=== PATIENT | male | born 1960 | race Two or more races ===

== ENCOUNTER 2017-06-25 11:17 | Inpatient (IN) | payer BC ==
[~2017-06-25] VITALS: Ht 182.9 cm; Wt 106.9 kg
--- NOTE | 2017-06-25 13:27 | HP ---
Date/Time of Note Date/Time of Note DATE: 06/25/17 TIME: 13:23 Assessment/Plan VTE Prophylaxis VTE Prophylaxis Intervention: ambulation Assessment/Plan Chief Complaint/Hosp Course 1. Dysphagia and vomiting 2. Nausea 3. Acid reflex 4. Overweight 5.Nicotine dependence 6. Anxiety 7. Methadone use 8. Possible DN type II Problems: Assessment/Plan 1. Start protonix and IV fluids 2. NO vital signs yet 3. Dr Conley for a consult HPI/ROS Admit Date/Time Admit Date/Time Jun 25, 2017 at 13:04 Hx of Present Illness 56 yo patient check in in [facility] Emergency room with acid reflex and vomiting previous night. He said that he has dysphagia over a year and now unable to eat or swallow a water. He does not associate vomiting with any bad food, reported frequent acid reflex. Reports sore thrOAT Now patient reports nausea and decreased appetite. denied cough, chills, loss of weight and similar symptoms PRIOR 1 YEAR AGO. HISTORY OF OPIATES USE, NOW ON METHADONE 38 mg daily AND XANAX 2 mg PO TID. ROS Respiratory: no complaints Cardiovascular: no complaints Gastrointestinal: decreased appetite, nausea, pain, vomiting (last night) Genitourinary: no complaints Musculoskeletal: no complaints Lymphatic: no complaints Psychological: no complaints PMH/Family/Social Past Medical History Medical History: hypertension, other (acid reflex) Past Surgical History Past Surgical Hx: no surgical history Family History Significant Family History: other (live with [facility]) Social History Alcohol Use: none Smoking Status: Current every day smoker Drug Use: other (history opiates abuse) Exam/Review of Systems Exam Constitutional: alert, oriented Eyes: nl conjunctiva ENMT: nl external ears & nose Neck: supple Respiratory: clear to auscultation Cardiovascular: regular rate and rhythm Gastrointestinal: soft Musculoskeletal: nl extremities to inspection Extremities: normal pulses Neurological: INTEGRATION LEAD II-XII intact RASHAD PACKER Jun 25, 2017 13:27
[2017-06-25 13:45] VITALS: BP 153/80; PULSE 89; RESP 16
[2017-06-25] MEDS ORDERED: ZOLPIDEM 5 MG TAB PO PRN (14:00)
[2017-06-25] MEDS ORDERED: ONDANSETRON 4 MG INJ IV PRN (14:00)
[2017-06-25] MEDS ORDERED: DEXTROSE 5% 1,000 ML IV SCH (14:00)
[2017-06-25] MEDS: DEXTROSE 5%-0.9% NACL 1,000 ML IV SCH ×2 (14:00→23:39)
[2017-06-25] MEDS ORDERED: NACL 0.9% 3 ML SYG IV SCH (14:00)
[2017-06-25] MEDS ORDERED: METHADONE (1 MG/ML 5 ML PO UD SYG) PO SCH (14:00)
[2017-06-25] MEDS ORDERED: IBUPROFEN 600 MG TAB PO PRN (14:00)
[2017-06-25] MEDS ORDERED: hydrALAzine 20 MG INJ IV PRN (14:00)
[2017-06-25 14:42] VITALS: Ht 182.9 cm; Wt 106.9 kg
[2017-06-25] MEDS ORDERED: METHADONE (1 MG/ML 5 ML PO UD SYG) PO ONE (15:00)
[2017-06-25] MEDS: ALPRAZOLAM 1 MG TAB PO SCH ×2 (15:00→17:37)
[2017-06-25] MEDS ORDERED: PANTOPRAZOLE 40 MG INJ IV SCH (17:00)
[2017-06-25] MEDS: PANTOPRAZOLE 40 MG INJ IV SCH (17:10)
[2017-06-25] MEDS: METOCLOPRAMIDE 10 MG INJ IV SCH ×2 (17:37→23:39)
[2017-06-25] MEDS ORDERED: METH-378 PO (18:26)
[2017-06-25] MEDS ORDERED: ALPR2TAB PO (18:26)
[2017-06-25 18:39] LABS: BARBITURATES Negative (NEGATIVE); BENZODIAZEPINES Positive (NEGATIVE); CANNABINOIDS Negative (NEGATIVE); COCAINE Negative (NEGATIVE); OPIATES Negative (NEGATIVE)
[2017-06-25 21:01] VITALS: BP 162/89; RESP 19
[2017-06-25 21:17] VITALS: BP 156/75
--- NOTE | 2017-06-26 02:25 | CONS ---
DATE OF ADMISSION: 06/25/2017 DATE OF CONSULTATION: HISTORY OF PRESENT ILLNESS: A 56-year-old male admitted to the hospital for severe heartburn, occas ional dysphagia and regurgitation going on for the last 1 year with acute exacerbation recently. Th e patient was in the emergency room at [facility]. No GI bleeding, no chest pain, no shortn ess of breath, no or CAMPUS DIRECTOR problem. Patient is on methadone and Xanax. REVIEW OF SYSTEMS: Negative. There is no weight loss, no cough. PAST MEDICAL HISTORY: Hypertension. PAST SURGICAL HISTORY: None. SOCIAL HISTORY: Lives with his sister. No alcohol, everyday smoker. PHYSICAL EXAMINATION GENERAL: Well built, nourished, not in distress. VITAL SIGNS: Stable. HEENT: Unremarkable. NECK: Supple, no thyromegaly, no lymphadenopathy. CARDIOVASCULAR: No murmur, gallop or click. LUNGS: Clear. ABDOMEN: Benign. EXTREMITIES: No edema. CENTRAL NERVOUS SYSTEM: Grossly within normal limits. IMPRESSION: 1. Severe gastroesophageal reflux disease. 2. Regurgitation. 3. Dysphagia. 4. Nicotine dependency. 5. Anxiety. 6. Type 2 diabetes mellitus. 7. Methadone usage for her back pain. PLAN: At this point is to continue with Protonix and increase the dose, Reglan around the clock, an d the patient definitely will need EGD. Dictated By: ANA LEON/GARETT Conf#: [id number] DID#: [id number] CC: FAISAL TERRELL MD;*EndCC*
[2017-06-26 02:30] VITALS: BP 138/78; RESP 19
[2017-06-26] MEDS: PANTOPRAZOLE 40 MG INJ IV SCH ×2 (05:25→17:34)
[2017-06-26] MEDS: METOCLOPRAMIDE 10 MG INJ IV SCH ×4 (05:26→23:35)
[2017-06-26 07:24] LABS: BASOPHILS % 0.2 % (0.0-2.0); EOSINOPHILS % 0.1 % (0.0-7.0); HEMATOCRIT 37.4 % (42.0-52.0); HEMOGLOBIN 12.7 g/dl (14.0-18.0); LYMPHOCYTES % 20.6 % (15.0-51.0); MEAN CORPUSCULAR HEMOGLOBIN 30.8 pg (29.0-33.0); MEAN CORPUSCULAR VOLUME 90.6 fl (82.0-101.0); MEAN PLATELET VOLUME 9.6 fl (7.4-10.4); MONOCYTE # 0.7 10^3/ul (0.3-0.9); MONOCYTES % 7.2 % (0.0-11.0); NEUTROPHIL # 6.9 10^3/ul (1.6-7.5); NEUTROPHILS % 71.6 % (39.0-77.0); PLATELET COUNT 215 10^3/UL (140-415); RED BLOOD COUNT 4.13 10^6/ul (4.70-6.10); RED CELL DISTRIBUTION WIDTH 13.9 % (11.5-14.5); WHITE BLOOD COUNT 9.6 10^3/ul (4.8-10.8)
[2017-06-26 07:55] LABS: ALBUMIN 3.7 g/dl (3.3-4.9); ALBUMIN/GLOBULIN RATIO 1.15; BILIRUBIN,INDIRECT 0.2 mg/dl (0-1.1); BILIRUBIN,TOTAL 0.2 mg/dl (0.2-1.3); CREATININE 0.63 mg/dl (0.61-1.24); POTASSIUM 3.5 mmol/L (3.5-5.1); TOTAL PROTEIN 6.9 g/dl (6.1-8.1)
[2017-06-26 08:42] VITALS: BP 159/89; RESP 17
[2017-06-26] MEDS: ALPRAZOLAM 1 MG TAB PO SCH ×3 (08:56→20:29)
[2017-06-26] MEDS: METHADONE (1 MG/ML 5 ML PO UD SYG) PO SCH (12:01)
[2017-06-26] MEDS: DEXTROSE 5%-0.9% NACL 1,000 ML IV SCH ×3 (12:04→22:18)
--- NOTE | 2017-06-26 13:28 | PN ---
Date/Time of Note Date/Time of Note DATE: 06/26/17 TIME: 13:26 Assessment/Plan VTE Prophylaxis VTE Prophylaxis Intervention: ambulation Lines/Catheters IV Catheter Type (from Nrsg): Peripheral IV Assessment/Plan Chief Complaint/Hosp Course 1. Dysphagia and vomiting found severe gastroesophageal reflux disease. 2. Nausea 3. Acid reflex 4. Overweight 5. Nicotine dependence 6. Anxiety 7. Methadone use 39 mg daily 8. Hg A1 C 5.5 Problems: Assessment/Plan 1.Continue PPI and other medication Subjective 24 Hr Interval Summary Constitutional: improved, no complaints Exam/Review of Systems Vital Signs Vitals Vital Signs Date Time Temp Pulse Resp B/P Pulse Ox O2 Delivery O2 Flow Rate FiO2 06/26/17 08:42 98.4 87 17 159/89 93 06/25/17 13:45 Room Air Intake and Output 06/25/17 06/25/17 06/26/17 15:00 23:00 07:00 Intake Total 1520 ml 720 ml Output Total 100 ml Balance 1420 ml 720 ml Exam Constitutional: alert, oriented Gastrointestinal: rebound or guarding, soft Results Result Diagram: 06/26/17 0639 06/26/17 0639 Results 24 hrs Laboratory Tests Test 06/25/17 14:19 06/25/17 18:00 06/26/17 06:39 Hemoglobin A1c 5.5 Urine Opiates Screen Negative Urine Barbiturates Negative Urine Amphetamines Screen Negative Urine Benzodiazepines Screen Positive Urine Cocaine Screen Negative Urine Cannabinoids Negative White Blood Count 9.6 Red Blood Count 4.13 L Hemoglobin 12.7 L Hematocrit 37.4 L Mean Corpuscular Volume 90.6 Mean Corpuscular Hemoglobin 30.8 Mean Corpuscular Hemoglobin Concent 34.0 Red Cell Distribution Width 13.9 Platelet Count 215 Mean Platelet Volume 9.6 Neutrophils % 71.6 Lymphocytes % 20.6 Monocytes % 7.2 Eosinophils % 0.1 Basophils % 0.2 Nucleated Red Blood Cells % 0.0 Neutrophils # 6.9 Lymphocytes # 2.0 Monocytes # 0.7 Eosinophils # 0.0 Basophils # 0.0 Nucleated Red Blood Cells # 0.0 Sodium Level 145 H Potassium Level 3.5 Chloride Level 110 Carbon Dioxide Level 27 Anion Gap 12 Blood Urea Nitrogen 17 Creatinine 0.63 Glucose Level 125 Calcium Level 9.0 Total Bilirubin 0.2 Direct Bilirubin 0.00 Indirect Bilirubin 0.2 Aspartate Amino Transf (AST/SGOT) 24 Alanine Aminotransferase (ALT/SGPT) 42 Alkaline Phosphatase 86 Total Protein 6.9 Albumin 3.7 Globulin 3.20 Albumin/Globulin Ratio 1.15 Medications Medications Current Medications Hydralazine HCl (Apresoline) 10 mg Q6H PRN IV SBP ABOVE 160; Start 06/25/17 at 14:00 Ondansetron HCl (Zofran Inj) 4 mg Q6H PRN IV NAUSEA AND/OR VOMITING Last administered on 06/25/17 20:18; Admin Dose 4 MG; Start 06/25/17 at 14:00 Ibuprofen (Motrin) 600 mg Q6H PRN PO PAIN LEVEL 1-3; Start 06/25/17 at 14:00 Zolpidem Tartrate (Ambien) 5 mg QHS PRN PO SLEEP; Start 06/25/17 at 14:00 Alprazolam 2 mg 2 mg TID PO Last administered on 06/26/17 12:05; Admin Dose 2 MG; Start 06/25/17 at 15:00 Dextrose/Sodium Chloride (D5-NS) 1,000 ml @ 100 mls/hr Q10H IV Last administered on 06/26/17 12:04; Admin Dose 100 MLS/HR; Start 06/25/17 at 14:00 Pantoprazole (Protonix Iv) 40 mg BID@06,18 IV Last administered on 06/26/17 05 :25; Admin Dose 40 MG; Start 06/25/17 at 18:00 Metoclopramide HCl (Reglan) 10 mg Q6 IV Last administered on 06/26/17 12:02; Admin Dose 10 MG; Start 06/25/17 at 18:00 Methadone HCl (Methadone Liq) 39 mg DAILY PO Last administered on 06/26/17 12: 01; Admin Dose 39 MG; Start 06/26/17 at 12:00 RASHAD PACKER Jun 26, 2017 13:28
[2017-06-26 14:00] VITALS: BP 137/77; RESP 18
--- NOTE | 2017-06-26 15:24 | CONS ---
Date/Time of Note Date/Time of Note DATE: 06/26/17 TIME: 15:23 Assessment/Plan Assessment/Plan Additional Assessment/Plan IMPRESSION: 1. Severe gastroesophageal reflux disease. 2. Regurgitation. 3. Dysphagia. 4. Nicotine dependency. 5. Anxiety. 6. Type 2 diabetes mellitus. 7. Methadone usage for her back pain. PLAN: At this point is to continue with Protonix and increase the dose, Reglan around the clock, and the patient definitely will need EGD. Start patient on liquid diet Consultation Date/Type/Reason Admit Date/Time Jun 25, 2017 at 13:04 Initial Consult Date 24 HR Interval Summary Constitutional: improved Exam/Review of Systems Vital Signs Vitals Vital Signs Date Time Temp Pulse Resp B/P Pulse Ox O2 Delivery O2 Flow Rate FiO2 06/26/17 14:00 98.0 78 18 137/77 94 06/25/17 13:45 Room Air Intake and Output 06/25/17 06/25/17 06/26/17 15:00 23:00 07:00 Intake Total 1520 ml 720 ml Output Total 100 ml Balance 1420 ml 720 ml Exam Constitutional: alert, oriented, well developed Psych: nl mood/affect, no complaints Head: atraumatic, normocephalic Eyes: EOMI, PERRL, nl conjunctiva, nl lids, nl sclera ENMT: nl external ears & nose, nl lips & teeth, nl nasal mucosa & septum Neck: non-tender, supple Respiratory: clear to auscultation, normal air movement Cardiovascular: nl pulses, regular rate and rhythm Gastrointestinal: nl liver, spleen, non-tender, soft Musculoskeletal: nl extremities to inspection, nl gait and stance Extremities: normal pulses Neurological: DIRECTOR OF CURRICULUM AND INSTRUCTION II-XII intact, nl mental status, nl speech, nl strength Skin: nl turgor, No rash or lesions Lymph: nl lymph nodes Results Result Diagram: 06/26/17 0639 06/26/17 0639 Results 24 hrs Laboratory Tests Test 06/25/17 18:00 06/26/17 06:39 Urine Opiates Screen Negative Urine Barbiturates Negative Urine Amphetamines Screen Negative Urine Benzodiazepines Screen Positive Urine Cocaine Screen Negative Urine Cannabinoids Negative White Blood Count 9.6 Red Blood Count 4.13 L Hemoglobin 12.7 L Hematocrit 37.4 L Mean Corpuscular Volume 90.6 Mean Corpuscular Hemoglobin 30.8 Mean Corpuscular Hemoglobin Concent 34.0 Red Cell Distribution Width 13.9 Platelet Count 215 Mean Platelet Volume 9.6 Neutrophils % 71.6 Lymphocytes % 20.6 Monocytes % 7.2 Eosinophils % 0.1 Basophils % 0.2 Nucleated Red Blood Cells % 0.0 Neutrophils # 6.9 Lymphocytes # 2.0 Monocytes # 0.7 Eosinophils # 0.0 Basophils # 0.0 Nucleated Red Blood Cells # 0.0 Sodium Level 145 H Potassium Level 3.5 Chloride Level 110 Carbon Dioxide Level 27 Anion Gap 12 Blood Urea Nitrogen 17 Creatinine 0.63 Glucose Level 125 Calcium Level 9.0 Total Bilirubin 0.2 Direct Bilirubin 0.00 Indirect Bilirubin 0.2 Aspartate Amino Transf (AST/SGOT) 24 Alanine Aminotransferase (ALT/SGPT) 42 Alkaline Phosphatase 86 Total Protein 6.9 Albumin 3.7 Globulin 3.20 Albumin/Globulin Ratio 1.15 Medications Medications Current Medications Hydralazine HCl (Apresoline) 10 mg Q6H PRN IV SBP ABOVE 160; Start 06/25/17 at 14:00 Ondansetron HCl (Zofran Inj) 4 mg Q6H PRN IV NAUSEA AND/OR VOMITING Last administered on 06/25/17 20:18; Admin Dose 4 MG; Start 06/25/17 at 14:00 Ibuprofen (Motrin) 600 mg Q6H PRN PO PAIN LEVEL 1-3; Start 06/25/17 at 14:00 Zolpidem Tartrate (Ambien) 5 mg QHS PRN PO SLEEP; Start 06/25/17 at 14:00 Alprazolam 2 mg 2 mg TID PO Last administered on 06/26/17 12:05; Admin Dose 2 MG; Start 06/25/17 at 15:00 Dextrose/Sodium Chloride (D5-NS) 1,000 ml @ 100 mls/hr Q10H IV Last administered on 06/26/17 12:04; Admin Dose 100 MLS/HR; Start 06/25/17 at 14:00 Pantoprazole (Protonix Iv) 40 mg BID@06,18 IV Last administered on 06/26/17 05 :25; Admin Dose 40 MG; Start 06/25/17 at 18:00 Metoclopramide HCl (Reglan) 10 mg Q6 IV Last administered on 06/26/17 12:02; Admin Dose 10 MG; Start 06/25/17 at 18:00 Methadone HCl (Methadone Liq) 39 mg DAILY PO Last administered on 06/26/17t 12: 01; Admin Dose 39 MG; Start 06/26/17 at 12:00 ANA ESCUDERO MD Jun 26, 2017 15:24
[2017-06-26 20:47] VITALS: BP 127/77; RESP 18
[2017-06-27 03:28] VITALS: BP 151/82; RESP 19
[2017-06-27] MEDS: PANTOPRAZOLE 40 MG INJ IV SCH ×2 (05:30→17:37)
[2017-06-27] MEDS: METOCLOPRAMIDE 10 MG INJ IV SCH ×4 (05:30→23:40)
[2017-06-27 08:00] VITALS: BP 155/88; RESP 18
[2017-06-27] MEDS: ALPRAZOLAM 1 MG TAB PO SCH ×3 (09:45→20:23)
[2017-06-27] MEDS: METHADONE (1 MG/ML 5 ML PO UD SYG) PO SCH (09:46)
[2017-06-27] MEDS: DEXTROSE 5%-0.9% NACL 1,000 ML IV SCH ×2 (09:52→23:41)
--- NOTE | 2017-06-27 13:33 | PN ---
Date/Time of Note Date/Time of Note DATE: 06/27/17 TIME: 13:32 Assessment/Plan VTE Prophylaxis VTE Prophylaxis Intervention: ambulation Lines/Catheters IV Catheter Type (from Nrsg): Peripheral IV Assessment/Plan Chief Complaint/Hosp Course 1. Dysphagia and vomiting found severe gastroesophageal reflux disease, better. 2. Nausea disappear 3. Acid reflex decreased 4. Overweight 5. Nicotine dependence 6. Anxiety, stable under control 7. Methadone use 39 mg daily 8. Hg A1 C 5.5 Problems: Assessment/Plan 1. PPI 2. EGD tomorrow 3. Decrease IV fluids to 50 ml/h, py os on clear liquid diet Subjective 24 Hr Interval Summary Constitutional: improved, no complaints Exam/Review of Systems Vital Signs Vitals Vital Signs Date Time Temp Pulse Resp B/P Pulse Ox O2 Delivery O2 Flow Rate FiO2 06/27/17 08:00 98.1 66 18 155/88 95 06/25/17 13:45 Room Air Intake and Output 06/26/17 06/26/17 06/27/17 15:00 23:00 07:00 Intake Total 400 ml 1250 ml 940 ml Balance 400 ml 1250 ml 940 ml Exam Constitutional: alert, oriented Respiratory: clear to auscultation Cardiovascular: regular rate and rhythm Gastrointestinal: soft Results Result Diagram: 06/26/17 0639 06/26/17 0639 Medications Medications Current Medications Hydralazine HCl (Apresoline) 10 mg Q6H PRN IV SBP ABOVE 160; Start 06/25/17 at 14:00 Ondansetron HCl (Zofran Inj) 4 mg Q6H PRN IV NAUSEA AND/OR VOMITING Last administered on 06/25/17 20:18; Admin Dose 4 MG; Start 06/25/17 at 14:00 Ibuprofen (Motrin) 600 mg Q6H PRN PO PAIN LEVEL 1-3; Start 06/25/17 at 14:00 Zolpidem Tartrate (Ambien) 5 mg QHS PRN PO SLEEP; Start 06/25/17 at 14:00 Alprazolam 2 mg 2 mg TID PO Last administered on 06/27/17 12:57; Admin Dose 2 MG; Start 06/25/17 at 15:00 Dextrose/Sodium Chloride (D5-NS) 1,000 ml @ 100 mls/hr Q10H IV Last administered on 06/27/17 09:52; Admin Dose 100 MLS/HR; Start 06/25/17 at 14:00 Pantoprazole (Protonix Iv) 40 mg BID@,18 IV Last administered on 06/27/17 05:30; Admin Dose 40 MG; Start 06/25/17 at 18:00 Metoclopramide HCl (Reglan) 10 mg Q6 IV Last administered on 06/27/17 12:54; Admin Dose 10 MG; Start 06/25/17 at 18:00 Methadone HCl (Methadone Liq) 39 mg DAILY PO Last administered on 06/27/17 09 :46; Admin Dose 39 MG; Start 06/26/17 at 12:00 RASHAD PACKER Jun 27, 2017 13:33
[2017-06-27 14:00] VITALS: BP 131/76; RESP 18
--- NOTE | 2017-06-27 18:22 | CONS ---
Date/Time of Note Date/Time of Note DATE: 06/27/17 TIME: 18:21 Assessment/Plan Assessment/Plan Additional Assessment/Plan Assessment/Plan Additional Assessment/Plan IMPRESSION: 1. Severe gastroesophageal reflux disease. 2. Regurgitation. 3. Dysphagia. 4. Nicotine dependency. 5. Anxiety. 6. Type 2 diabetes mellitus. 7. Methadone usage for her back pain. PLAN: At this point is to continue with Protonix and increase the dose, Reglan around the clock, and the patient definitely will need EGD. Start patient on liquid diet. Patient is able to tolerate liquid diet. GI lab will let me know tomorrow regarding endoscopy scheduling. I did inform GI lab on Wednesday at 5 PM. Consultation Date/Type/Reason Admit Date/Time Jun 25, 2017 at 13:04 24 HR Interval Summary Constitutional: improved Exam/Review of Systems Vital Signs Vitals Vital Signs Date Time Temp Pulse Resp B/P Pulse Ox O2 Delivery O2 Flow Rate FiO2 06/27/17 14:00 97.0 59 18 131/76 96 06/25/17 13:45 Room Air Intake and Output 06/26/17 06/26/17 06/27/17 15:00 23:00 07:00 Intake Total 400 ml 1250 ml 940 ml Balance 400 ml 1250 ml 940 ml Exam Constitutional: alert, oriented, well developed Psych: nl mood/affect, no complaints Head: atraumatic, normocephalic Eyes: EOMI, PERRL, nl conjunctiva, nl lids, nl sclera ENMT: nl external ears & nose, nl lips & teeth, nl nasal mucosa & septum Neck: non-tender, supple Respiratory: clear to auscultation, normal air movement Cardiovascular: nl pulses, regular rate and rhythm Gastrointestinal: nl liver, spleen, non-tender, soft Musculoskeletal: nl extremities to inspection, nl gait and stance Extremities: normal pulses Neurological: ELECTRICAL ACCESSORIES ASSEMBLER II-XII intact, nl mental status, nl speech, nl strength Skin: nl turgor, No rash or lesions Lymph: nl lymph nodes Results Result Diagram: 06/26/17 0639 06/26/17 0639 Medications Medications Current Medications Hydralazine HCl (Apresoline) 10 mg Q6H PRN IV SBP ABOVE 160; Start 06/25/17 at 14:00 Ondansetron HCl (Zofran Inj) 4 mg Q6H PRN IV NAUSEA AND/OR VOMITING Last administered on 06/25/17 20:18; Admin Dose 4 MG; Start 06/25/17 at 14:00 Ibuprofen (Motrin) 600 mg Q6H PRN PO PAIN LEVEL 1-3; Start 06/25/17 at 14:00 Zolpidem Tartrate (Ambien) 5 mg QHS PRN PO SLEEP; Start 06/25/17 at 14:00 Alprazolam 2 mg 2 mg TID PO Last administered on 06/27/17 12:57; Admin Dose 2 MG; Start 06/25/17 at 15:00 Dextrose/Sodium Chloride (D5-NS) 1,000 ml @ 50 mls/hr Q20H IV Last administered on 06/27/17 09:52; Admin Dose 100 MLS/HR; Start 06/25/17 at 14:00 Pantoprazole (Protonix Iv) 40 mg BID@06,18 IV Last administered on 06/27/17 17:37; Admin Dose 40 MG; Start 06/25/17 at 18:00 Metoclopramide HCl (Reglan) 10 mg Q6 IV Last administered on 06/27/17 17:37; Admin Dose 10 MG; Start 06/25/17 at 18:00 Methadone HCl (Methadone Liq) 39 mg DAILY PO Last administered on 06/27/17 09 :46; Admin Dose 39 MG; Start 06/26/17 at 12:00 ANA ESCUDERO MD Jun 27, 2017 18:22
[2017-06-27 20:26] VITALS: BP 142/69; RESP 20
[2017-06-28] VITALS (10 sets, daily range): BP systolic 116–161; BP diastolic 64–87; PULSE 63–69; RESP 10–21
[2017-06-28] MEDS: METOCLOPRAMIDE 10 MG INJ IV SCH ×3 (05:14→18:47)
[2017-06-28] MEDS: PANTOPRAZOLE 40 MG INJ IV SCH ×2 (05:14→18:48)
[2017-06-28 06:45] LABS: BASOPHILS % 0.6 % (0.0-2.0); EOSINOPHILS # 0.2 10^3/ul (0.0-0.5); EOSINOPHILS % 2.4 % (0.0-7.0); HEMATOCRIT 34.1 % (42.0-52.0); HEMOGLOBIN 11.6 g/dl (14.0-18.0); LYMPHOCYTES # 2.7 10^3/ul (0.8-2.9); LYMPHOCYTES % 39.5 % (15.0-51.0); MEAN CORPUSCULAR HEMOGLOBIN 30.4 pg (29.0-33.0); MEAN CORPUSCULAR VOLUME 89.3 fl (82.0-101.0); MEAN PLATELET VOLUME 9.7 fl (7.4-10.4); MONOCYTE # 0.5 10^3/ul (0.3-0.9); MONOCYTES % 7.8 % (0.0-11.0); NEUTROPHIL # 3.3 10^3/ul (1.6-7.5); NEUTROPHILS % 49.3 % (39.0-77.0); PLATELET COUNT 174 10^3/UL (140-415); RED BLOOD COUNT 3.82 10^6/ul (4.70-6.10); WHITE BLOOD COUNT 6.8 10^3/ul (4.8-10.8)
[2017-06-28 07:20] LABS: CALCIUM 8.4 mg/dl (8.4-10.2); CREATININE 0.65 mg/dl (0.61-1.24); POTASSIUM 3.7 mmol/L (3.5-5.1)
[2017-06-28] MEDS: ALPRAZOLAM 1 MG TAB PO SCH ×3 (08:57→20:53)
[2017-06-28] MEDS: METHADONE (1 MG/ML 5 ML PO UD SYG) PO SCH (12:13)
--- NOTE | 2017-06-28 16:03 | PN ---
Date/Time of Note Date/Time of Note DATE: 06/28/17 TIME: 16:00 Assessment/Plan VTE Prophylaxis VTE Prophylaxis Intervention: contraindicated Lines/Catheters IV Catheter Type (from Nrsg): Peripheral IV Assessment/Plan Chief Complaint/Hosp Course 56 y/o with #. Nausea/vomiting/dysphagia likely Severe gastroesophageal reflux disease. # Nicotine dependency. # Anxiety. # Methadone usage due to superintendent terminal vicodin use Recs - EGD today - c/w PPI/Reglan - Methadone per clinic - cw Xanax - iv fluids while NPO Problems: Subjective 24 Hr Interval Summary Free Text/Dictation Waiting for EGD Exam/Review of Systems Vital Signs Vitals Vital Signs Date Time Temp Pulse Resp B/P Pulse Ox O2 Delivery O2 Flow Rate FiO2 06/28/17 15:04 98.1 68 16 141/87 97 06/25/17 13:45 Room Air Intake and Output 06/27/17 06/27/17 06/28/17 14:59 22:59 06:59 Intake Total 300 ml 1120 ml 1750 ml Balance 300 ml 1120 ml 1750 ml Exam Gen: Awake,alert Neck:supple CVS: Regular rate and rthym Lungs:clear Abdomen:soft non tender Results Result Diagram: 06/28/17 0520 06/28/17 0520 Results 24 hrs Laboratory Tests Test 06/28/17 05:20 White Blood Count 6.8 # Red Blood Count 3.82 L Hemoglobin 11.6 L Hematocrit 34.1 L Mean Corpuscular Volume 89.3 Mean Corpuscular Hemoglobin 30.4 Mean Corpuscular Hemoglobin Concent 34.0 Red Cell Distribution Width 13.0 Platelet Count 174 Mean Platelet Volume 9.7 Neutrophils % 49.3 Lymphocytes % 39.5 Monocytes % 7.8 Eosinophils % 2.4 Basophils % 0.6 Nucleated Red Blood Cells % 0.0 Neutrophils # 3.3 Lymphocytes # 2.7 Monocytes # 0.5 Eosinophils # 0.2 Basophils # 0.0 Nucleated Red Blood Cells # 0.0 Sodium Level 139 Potassium Level 3.7 Chloride Level 104 Carbon Dioxide Level 28 Anion Gap 11 Blood Urea Nitrogen 13 Creatinine 0.65 Glucose Level 86 Calcium Level 8.4 Medications Medications Current Medications Hydralazine HCl (Apresoline) 10 mg Q6H PRN IV SBP ABOVE 160; Start 06/25/17 at 14:00 Ondansetron HCl (Zofran Inj) 4 mg Q6H PRN IV NAUSEA AND/OR VOMITING Last administered on 06/25/17 20:18; Admin Dose 4 MG; Start 06/25/17 at 14:00 Ibuprofen (Motrin) 600 mg Q6H PRN PO PAIN LEVEL 1-3; Start 06/25/17 at 14:00 Zolpidem Tartrate (Ambien) 5 mg QHS PRN PO SLEEP; Start 06/25/17 at 14:00 Alprazolam 2 mg 2 mg TID PO Last administered on 06/28/17 12:47; Admin Dose 2 MG; Start 06/25/17 at 15:00 Dextrose/Sodium Chloride (D5-NS) 1,000 ml @ 50 mls/hr Q20H IV Last administered on 06/27/17 23:41; Admin Dose 50 MLS/HR; Start 06/25/17 at 14:00 Pantoprazole (Protonix Iv) 40 mg BID@06,18 IV Last administered on 06/28/17 05:14; Admin Dose 40 MG; Start 06/25/17 at 18:00 Metoclopramide HCl (Reglan) 10 mg Q6 IV Last administered on 06/28/17 12:10; Admin Dose 10 MG; Start 06/25/17 at 18:00 Methadone HCl (Methadone Liq) 39 mg DAILY PO Last administered on 06/28/17 12 :13; Admin Dose 39 MG; Start 06/28/17 at 12:00; Stop 06/29/17 at 09:01 ART AMBROSE MD Jun 28, 2017 16:03
[2017-06-28] MEDS ORDERED: PROPOFOL 40 ML ONE (17:36)
[2017-06-28] MEDS ORDERED: PHENYLephrine (100 MCG/ML) 5ML SYG ONE (17:36)
--- NOTE | 2017-06-28 17:50 | OPPN ---
Date/Time of Note Date/Time of Note DATE: 06/28/17 TIME: 17:48 Proc Note GI Procedure Date 06/28/17 Indication: diagnostic Pre-procedure Diagnosis Severe heartburn and dysphagia Post-procedure Diagnosis 1. Extensive esophageal ulceration in the distal part 2. Esophageal stricture at the site of ulceration which was 4 cm above Z line. 3. 3 cm tonguelike projection extending from the Z line strong possibility of Sutton's 4. Z line at 40 cm 5. Gastritis Procedure Performed: Endoscopy Surgeon see signature line Clinical Trial Specialist none Anesthesia Type: MAC Tourniquet Time none EBL none Transfusion required none Biopsy 1: The biopsies from stomach Grafts/Implants none Tubes/Drains none Complication(s) none Disposition: PACU Procedure Description Dictated ANA ESCUDERO MD Jun 28, 2017 17:50
[2017-06-29] MEDS: METOCLOPRAMIDE 10 MG INJ IV SCH ×3 (00:26→12:12)
[2017-06-29 03:07] VITALS: BP 142/70; RESP 18
[2017-06-29] MEDS: PANTOPRAZOLE 40 MG INJ IV SCH (06:03)
[2017-06-29] MEDS: DEXTROSE 5%-0.9% NACL 1,000 ML IV SCH (06:22)
--- NOTE | 2017-06-29 06:28 | GILP ---
DATE OF PROCEDURE: INDICATION: A 56-year-old male undergoing this procedure for dysphagia and severe heartburn. The r isk of the procedure, related and unrelated complications, anesthetic risks, alternatives discussed and informed consent was obtained. DESCRIPTION OF PROCEDURE: The patient was brought to the GI lab, sedated by TECHNICAL EDITOR . After obta ining sedation, scope was passed with much ease into esophagus. He had first linear seen in the dis mahamed part of the esophagus. Upon advancing the scope, there were multiple circumferentially distribu wilman ulcers 5 cm above the Z line and those were very friable and narrowing of the lumen of the esoph luci. It offered resistance, slight resistance to the passage of the scope. Scope was advanced fur ther down into stomach, gastritis identified. Three biopsies obtained. Duodenum, first and second part appeared normal. Retroversion in the stomach also was normal. Scope was straightened out. Th e proximal migration of the tongue-like projection of the stomach mucosa above the Z line by 3 cm. Z line was at 40 cm and tongue-like projections started at 37 cm. Sutton's cannot be ruled out. S cope was removed with good patient tolerance. IMPRESSION: 1. Severe ulceration in the distal part of the esophagus, 5 cm above the Z line and also linear ulc eration. Very friable mucosa with stricture development. 2. Tongue tongue-like projection extending proximally by 3 cm. Sutton's cannot be ruled out. 3. Gastritis. 4. Normal duodenum. 5. Normal retroversion. PLAN: To continue double dose of PPI. Continue Reglan and advance diet slowly. Patient definitely needs a repeat endoscopy after 2 months to confirm the diagnosis of Sutton's by obtaining the biop sy and also make sure the stricture has healed. Otherwise, patient will need dilatation. Dictated By: ANA LEON/GARETT Conf#: [id number] DID#: [id number] CC: FAISAL TERRELL MD;*EndCC*
[2017-06-29 08:11] VITALS: BP 130/77; RESP 18
[2017-06-29] MEDS: ALPRAZOLAM 1 MG TAB PO SCH ×2 (08:37→12:12)
[2017-06-29] MEDS: METHADONE (1 MG/ML 5 ML PO UD SYG) PO SCH (09:19)
--- NOTE | 2017-06-29 11:54 | PDOCDIS ---
Discharge Instructions DIAGNOSIS Discharge Diagnosis Ulcers of esophagus Gastritis CONDITION Patient Condition: Good HOME CARE INSTRUCTIONS: Diet Instructions: Regular ACTIVITY: Activity Restrictions: Slowly Increase Activity FOLLOW UP/APPOINTMENTS Follow-up Plan F/U Dr Conley in 2 months for results and possible repeat EGD f/u PCP in 2 weeks Return to ER if has severe abdominal pain/ dysphagia ART AMBROSE MD Jun 29, 2017 11:54
[2017-06-29] MEDS ORDERED: PANT40VI7 ORAL (11:56)
[2017-06-29] MEDS ORDERED: Metoclopramide PO (11:56)
[2017-06-29 14:13] VITALS: BP 154/73; RESP 18
--- NOTE | 2017-06-29 18:43 | CONS ---
Date/Time of Note Date/Time of Note DATE: 06/29/17 TIME: 18:42 Assessment/Plan Assessment/Plan Additional Assessment/Plan Additional Assessment/Plan IMPRESSION: 1. Severe gastroesophageal reflux disease. 2. Regurgitation. 3. Dysphagia. 4. Nicotine dependency. 5. Anxiety. 6. Type 2 diabetes mellitus. 7. Methadone usage for her back pain. 8. Esophageal ulceration with stricture formation Plan Continue with PPI refrain from alcohol Discussed case with Dr. Floyd this morning Consultation Date/Type/Reason Admit Date/Time Jun 25, 2017 at 13:04 24 HR Interval Summary Constitutional: improved Exam/Review of Systems Vital Signs Vitals Vital Signs Date Time Temp Pulse Resp B/P Pulse Ox O2 Delivery O2 Flow Rate FiO2 06/29/17 14:13 98.3 77 18 154/73 95 06/28/17 18:14 Room Air 06/28/17 17:57 10.0 Intake and Output 06/28/17 06/28/17 06/29/17 14:59 22:59 06:59 Intake Total 550 ml 1700 ml Balance 550 ml 1700 ml Exam Constitutional: alert, oriented, well developed Psych: nl mood/affect, no complaints Head: atraumatic, normocephalic Eyes: EOMI, PERRL, nl conjunctiva, nl lids, nl sclera ENMT: nl external ears & nose, nl lips & teeth, nl nasal mucosa & septum Neck: non-tender, supple Respiratory: clear to auscultation, normal air movement Cardiovascular: nl pulses, regular rate and rhythm Gastrointestinal: nl liver, spleen, non-tender, soft Musculoskeletal: nl extremities to inspection, nl gait and stance Extremities: normal pulses Neurological: WATCH ASSEMBLER II-XII intact, nl mental status, nl speech, nl strength Skin: nl turgor, No rash or lesions Lymph: nl lymph nodes Results Result Diagram: 06/28/1751906/28/1720 ANA ESCUDERO MD Jun 29, 2017 18:43
== END 2017-06-29 14:51 | disposition home or self-care (01) | DRG 392 ==
LOC: PP2 13:04
PROVIDERS: ADMIT Internal Medicine Nephrology; ATTEND Internal Medicine Nephrology
PROC: 0DD98ZX Extraction of Duodenum, Via Natural or Artificial Opening Endoscopic, Diagnostic (ICD-10-PCS; principal; 2017-06-28 17:00)
DX: K21.9 Gastro-esophageal reflux disease without esophagitis (principal); E11.8 Type 2 diabetes mellitus with unspecified complications; K22.10 Ulcer of esophagus without bleeding; R13.10 Dysphagia, unspecified; R11.10 Vomiting, unspecified; F17.200 Nicotine dependence, unspecified, uncomplicated; F41.9 Anxiety disorder, unspecified; E11.9 Type 2 diabetes mellitus without complications; I10 Essential (primary) hypertension; Z68.32 Body mass index [BMI] 32.0-32.9, adult; Z79.891 Long term (current) use of opiate analgesic; E66.01 Morbid (severe) obesity due to excess calories
CPT/HCPCS: 80048; 80053; 80307; 83036; 85025; 88305; 88312; C9113; J0360; J2370; J2405; J2765; J7042; J7070